=== PATIENT | female | born 1970 | race American Indian/Alaskan Native ===

== ENCOUNTER 2017-04-08 16:10 | Emergency (ER) | payer MEDICAID ==
[2017-04-08 16:19] VITALS: BMI 29.2
[2017-04-08 16:21] VITALS: BP 143/92; PULSE 115; RESP 18; TEMP 98; O2SAT 98
--- NOTE | 2017-04-08 16:45 | C.PDOC ---
History Of Present Illness 47-year-old female, presents to the emergency department with complaints of left inguinal pain that started a few days ago after she was carrying heavy bags. Patient took Advil at home for pain last night with relief. Pain worsens with walking, and came to ED for evaluation. Denies numbness/weakness, symptoms, abdominal pain or back pain. Time Seen by Provider: 04/08/17 16:31 Chief Complaint (Nursing): Female Genitourinary History Per: Patient History/Exam Limitations: no limitations Onset/Duration Of Symptoms: Days Current Symptoms Are (Timing): Still Present Severity: Moderate Past Medical History Reviewed: Historical Data, Nursing Documentation, Vital Signs Vital Signs: Last Vital Signs Temp 98.0 F 04/08/17 16:18 Pulse 115 H 04/08/17 16:18 Resp 18 04/08/17 16:18 BP 143/92 H 04/08/17 16:18 Pulse Ox 98 04/08/17 17:06 - Medical History PMH: Arthritis, HTN Surgical History: Hernia Repair - [facility] INJECT/INFUSE NEC (12/26/13) Family History: States: No Known Family Hx - Social History Hx Alcohol Use: No Hx Substance Use: No - Immunization History Hx Tetanus Toxoid Vaccination: No Hx Influenza Vaccination: No Hx Pneumococcal Vaccination: No Review Of Systems Constitutional: Negative for: Fever Respiratory: Negative for: Shortness of Breath Gastrointestinal: Negative for: Nausea, Vomiting, Abdominal Pain Musculoskeletal: Positive for: Other (inguinal pain, left-sided). Negative for : Back Pain Neurological: Negative for: Weakness Physical Exam - Physical Exam Appears: Well, Non-toxic, No Acute Distress Skin: Normal Color, Warm, Dry, No Rash Head: Atraumatic, Normacephalic Eye(s): bilateral: Normal Inspection, EOMI Neck: Normal ROM Chest: Symmetrical Gastrointestinal/Abdominal: Soft, No Tenderness, No Distention, No Guarding, No Hernia Back: Normal Inspection, No CVA Tenderness, No Vertebral Tenderness, No Paraspinal Tenderness Pelvic: Normal External Exam, No Mass Extremity: Normal ROM, Tenderness (left thigh), No Deformity, No Swelling, Other (Left inguinal area with mild tenderness on palpation. No erythema or swelling. No mass) Neurological/Psych: Oriented x3, Normal Speech ED Course And Treatment O2 Sat by Pulse Oximetry: 98 (RA) Pulse Ox Interpretation: Normal Medical Decision Making Medical Decision Making: Patient given dose of Motrin and Flexeril in ED for pain. Will be discharged with Rx for Motrin and instructions to f/u outpatient with PMD/clinic. Disposition Counseled Patient/Family Regarding: Need For Followup, Rx Given - Disposition Referrals: Jg Reyes MD [Medical Doctor] - Disposition: HOME/ ROUTINE Disposition Time: 16:50 Condition: GOOD Additional Instructions: You can apply heat to area for 15-20 minutes Take Tylenol or Motrin for any pain Can take muscle relaxant as needed, caution can cause drowsiness Prescriptions: Cyclobenzaprine [Cyclobenzaprine HCl] 10 mg PO TID #21 tab Ibuprofen [Motrin] 600 mg PO Q8 #30 tab Instructions: Muscle Strain Forms: [facility] (Pashto) - POA Present On Arrival: None - Clinical Impression Clinical Impression: Muscle strain - Scribe Statement The provider has reviewed the documentation as recorded by the Scribe (Jose Daniel Read) All medical record entries made by the Scribe were at my direction and personally dictated by me. I have reviewed the chart and agree that the record accurately reflects my personal performance of the history, physical exam, medical decision making, and the department course for this patient. I have also personally directed, reviewed, and agree with the discharge instructions and disposition.
== END 2017-04-08 16:54 | disposition home or self-care (01) ==
LOC: C.ER 16:10
DX: S39.011A Strain of muscle, fascia and tendon of abdomen, initial encounter (principal); X50.0XXA Overexertion from strenuous movement or load, initial encounter; Y92.9 Unspecified place or not applicable